=== PATIENT | female | born 1995 | race Caucasian/White ===

== ENCOUNTER → 2020-08-15 11:38 | Outpatient (BNVA) | payer SELFPAY | PROVIDERS: Family Provider Family Medicine; PCP Family Medicine; Visit Provider Nurse Practitioner Women's Health | DX: R39.9 Unspecified symptoms and signs involving the genitourinary system (principal); R30.0 Dysuria; R31.9 Hematuria, unspecified | CPT/HCPCS: 81000; 87077; 87086; 87184 ==

== ENCOUNTER → 2020-10-24 13:54 | Outpatient (BNVA) | payer OTHER, SELFPAY | PROVIDERS: Family Provider Family Medicine; PCP Family Medicine; Visit Provider Obstetrics & Gynecology | DX: Z30.431 Encounter for routine checking of intrauterine contraceptive device (principal) | CPT/HCPCS: 76830 ==

== ENCOUNTER → 2020-10-27 09:30 | Outpatient (BNVA) | payer OTHER, SELFPAY | PROVIDERS: Family Provider Family Medicine; PCP Family Medicine; Visit Provider Nurse Practitioner Women's Health | DX: Z34.90 Encounter for supervision of normal pregnancy, unspecified, unspecified trimester (principal); N93.0 Postcoital and contact bleeding; R39.89 Other symptoms and signs involving the genitourinary system | CPT/HCPCS: 81000; 87086; 87491; 87591; 87661 ==

== ENCOUNTER 2021-05-22 08:12 | Outpatient (CLI) | payer MEDICAID, SELFPAY ==
--- NOTE | 2021-05-22 08:21 | US_ITS ---
WS: [id number] EARLY OBSTETRICAL ULTRASOUND (<14 WEEKS). HISTORY: ENCOUNTER FOR SUPERVISION OF NORMAL 1ST COMPARISON: None available. Single intrauterine gestational sac is identified. Cardiac activity at 153 BPM. Mcnary-rump length raissa sures 6.1 cm which corresponds to a gestation of 12w4d. Normal-appearing yolk sac and amnion demonstr ated. No subchorionic hemorrhage.Patient was brought back for additional imaging. Additional imaging was to differentiate the amnion from the posterior neck and thorax. On additional imaging the amnion is noted to extend above the head. No free fluid. Normal size ovaries with no mass. Normal vascularity. Cervix is closed. No free fluid in the pelvis. US/US OB <= 14 weeks fetus [id number] IMPRESSION: 1. Single intrauterine gestation of 12 weeks 4 days with an EDC of 11/30/2021. 2. Normal cardiac activity.
== END 2021-05-22 08:13 | disposition home or self-care (01) ==
PROVIDERS: PCP Family Medicine; Visit Provider Pediatrics
DX: Z34.01 Encounter for supervision of normal first pregnancy, first trimester (principal); Z3A.12 12 weeks gestation of pregnancy
CPT/HCPCS: 76801

== ENCOUNTER 2021-07-02 08:00 | Outpatient (CLI) | payer MEDICAID, SELFPAY ==
--- NOTE | 2021-07-02 08:06 | US_ITS ---
WS: [id number] OBSTETRICAL ULTRASOUND COMPLETE HISTORY: ANATOMY CHECK COMPARISON: 05/22/2021 Single intrauterine gestation in transverse presentation. head on maternal RIGHT. Cervix is Closed and normal length. Cervical length is 4.4 cm. Normal amount of amniotic fluid surrounds the fetus. Placenta: Posterior, no previa or abruption. Placenta grade 1 Heart: 153 BPM. Four chambers are identified. RIGHT and LEFT outflow tracts are unremarkable. Anatomy: Intracranial structures and spine are normal. kidneys, stomach and urinary bladd er are unremarkable. Abdominal wall, three-vessel cord and cord insertion site are normal. 4 extremities are present. profile: Unremarkable. Gender: Female. measurements: BPD = 4.0 cm = 18w0d HC = 15.6 cm = 18w4d AC = 12.8 cm = 18w2d FL = 2.8 cm = 18w4d EFW: 240 g. Biometry is internally concordant. AGA by ultrasound: 18w3d CAN by ultrasound: 11/30/2021 US/US OB >= 14 weeks fetus [id number] IMPRESSION: 1. Single intrauterine gestation of 18w3d with an CAN of 11/30/2021. 2. Unremarkable screening survey of anatomy.
== END 2021-07-02 08:01 | disposition home or self-care (01) ==
PROVIDERS: PCP Family Medicine; Visit Provider Family Medicine
DX: Z36.89 Encounter for other specified antenatal screening (principal); Z3A.18 18 weeks gestation of pregnancy
CPT/HCPCS: 76805

== ENCOUNTER 2021-07-16 08:25 | Emergency (ER) | payer BC, MEDICAID, SELFPAY ==
[2021-07-16 08:40] VITALS: BP 116/79; PULSE 116; RESP 18; TEMP 36.3; O2SAT 100; BMI 25.7
--- NOTE | 2021-07-16 08:51 | ED_ITS ---
Documented by User: EDDY Kelly 07/16/21 11:55 HPI - GI Bleed General: Chief complaint: GI Bleed Stated complaint: diarrhea/blood in stool/abdominal cramps Time Seen by Provider: 07/16/21 08:36 Source: patient Mode of arrival: ambulatory Limitations: no limitations History of Present Illness: Patient is a 26-year-old female who presents to ED today with complaint of diarrhea over the past 3 days. Patient states she is having anywhere from 10-15 diarrhea stools daily. She states she became concerned when yesterday she began noticing a small amount of bright red blood in her stools. She states since then bleeding has progressed and is now noting a few teaspoons of mucus-like blood in each stool. She is having intermittent abdominal cramping. She reports the urge to defecate but often times cannot. She is not running fevers. No vomiting. Patient is [address] weeks [address] by Dr[address] May. No vaginal bleeding or leaking of fluids. MD complaint: blood on toilet paper and blood streaked stool Onset (ago): day(s) Pain Consistency: intermittent Associated symptoms: Reports abdominal pain; Denies chills, fever(s), headache(s), malaise, nausea, rash or vomiting Treatments Prior to Arrival: none Review of Systems Const: Denies: fever(s), chills, body aches, fatigue or malaise Card: Denies: chest pain Resp: Denies: dyspnea GI: Reports: abdominal pain, diarrhea, GI cramping and hematochezia; Denies: nausea, vomiting, hematemesis, early satiety, belching, excessive flatus, fecal incontinence, rectal pain, rectal swelling, rectal itching or melena : Denies: flank pain, dysuria, hematuria or vaginal bleeding Musc: Denies: neck pain, back pain, extremity pain or joint pain Skin/Breast: Denies: rash Neuro: Denies: headache(s) or dizziness PFS ED PFSH: Medical History No pertinent past medical history neghx: htn,dm,thyroid,dvt/pe Surgical History No pertinent past surgical history Family History Father Hypertension Grandmother Family history of thyroid problem Maternal grandmother Ovarian cancer, Onset Age: 65 Maternal grandmother. BRCA 2 carrier Family/Other Breast cancer Maternal great aunt Denies family history of Colon cancer Diabetes Heart disease Hyperlipidemia Uterine cancer Stroke Social History Additional social history: - Tobacco use: Denies Alcohol use: Denies Drug use: Denies Physical Exam Const: COMMON NORMALS: no acute distress, average body habitus, patient oriented x3, no limitations, healthy appearing, alert and well nourished HENMT: COMMON NORMALS: normocephalic and atraumatic HEAD & SCALP: normocephalic and atraumatic Resp: COMMON NORMALS: normal respiratory effort and clear to auscultation bilaterally AUSCULTATION: clear to auscultation bilaterally Cardio: COMMON NORMALS: regular rate and regular rhythm RATE: regular rate RHYTHM: regular rhythm GI: COMMON NORMALS: Normal to inspection, nondistended, normoactive bowel sounds present, Soft to palpation, No hepatosplenomegaly present and no masses INSPECTION: Yes gravid abdomen AUSCULTATION: Yes normoactive bowel sounds PALPATION: Yes Soft to palpation, Yes Tenderness to palpation present (GI) (mildly-diffuse) and Yes No hepatosplenomegaly present RECTAL EXAM: visual inspection normal, normal sphincter tone, No External hemorrhoid(s) present, No Internal hemorrhoid(s) present, no fecal impaction, no hemorrhoids noted and no mass(es) noted : COMMON NORMALS: Yes no CVA tenderness BLADDER/KIDNEY EXAM: Yes no CVA tenderness Back/Pelvis: COMMON NORMALS: no CVA tenderness Neuro: COMMON NORMALS: patient oriented x3, moves all extremities, no focal motor deficits and no sensory deficits noted SENSORIUM/ORIENTATION: Yes alert Skin: COMMON NORMALS: no rashes or lesions noted GENERAL SKIN EXAM: no rashes or lesions noted Course Reevaluation(s): Reevaluation #1: Bedside US shows live IUP with normal cardiac activity Vital Signs: Vital signs: Vital Signs Temperature 98.4 F 07/16/21 09:03 Pulse Rate 18 L 07/16/21 10:21 Respiratory Rate 18 07/16/21 10:21 Blood Pressure 114/78 07/16/21 10:21 Pulse Oximetry 93 07/16/21 10:21 MDM - GI Bleed Medical Decision Making Patient is a 26-year-old female at 20 weeks here for concerns of intermittent abdominal cramping, bloody/mucousy diarrhea, and tenesmus over the past 3 days. Patient slightly tachycardic upon arrival. She was given a liter of fluids and this did improve. Her white count is normal. Remainder of blood work is unremarkable. Bedside ultrasound of fetus showed a live IUP with normal cardiac activity. Decided to forego any form of imaging secondary to and unlikeliness of changing management. Stool cultures pending. Spoke to Dr. Pool about the need for antibiotics who recommended holding off at this time as most cases of enterocolitis are self-limited. Will contact patient later today if any of her stool tests come back positive-she was made aware that some of these are send outs and we will not receive results for [address] her on Bentyl for the abdominal cramping/spasms. Recommend close observation of symptoms at home and strict return to ED precautions were given. Lab Data : 07/16/21 08:50 07/16/21 08:50 Laboratory Results WBC 6.9 10^3/uL (4.0-10.0) 07/16/21 08:50 RBC 3.70 10^6/uL (4.1-5.3) L 07/16/21 08:50 Hgb 12.1 g/dL (11.5-15.3) 07/16/21 08:50 Hct 35.6 % (37.0-47.0) L 07/16/21 08:50 MCV 96.2 fl (81-99) 07/16/21 08:50 MCH 32.7 pg (28.0-34.0) 07/16/21 08:50 MCHC 34.0 g/dL (30.0-36.0) 07/16/21 08:50 RDW 12.8 % (12.1-15.1) 07/16/21 08:50 Plt Count 189 10^3/cmm (130-400) 07/16/21 08:50 MPV 10.7 fL (7.4-10.4) H 07/16/21 08:50 Neut % (Auto) 82.1 % 07/16/21 08:50 Lymph % (Auto) 10.6 % 07/16/21 08:50 [place] % (Auto) 6.6 % 07/16/21 08:50 Eos % (Auto) 0.3 % 07/16/21 08:50 Baso % (Auto) 0.3 % 07/16/21 08:50 Neut # (Auto) 5.63 10^3/uL (1.8-7.7) 07/16/21 08:50 Lymph # (Auto) 0.7 10^3/uL (0.8-4.8) L 07/16/21 08:50 [place] # (Auto) 0.5 10^3/uL (0.2-0.9) 07/16/21 08:50 Eos # (Auto) 0.0 10^3/uL (0.0-0.8) 07/16/21 08:50 Baso # (Auto) 0.0 10^3/uL (0.0-0.1) 07/16/21 08:50 Nucleated RBC % (auto) 0 % 07/16/21 08:50 Nucleated RBCs # 0.0 /100WBC 07/16/21 08:50 Sodium 134 mmol/L (136-145) L 07/16/21 08:50 Potassium 3.6 mmol/L (3.5-5.1) 07/16/21 08:50 Chloride 101 mmol/L (98-107) 07/16/21 08:50 Carbon Dioxide 23 mmol/L (22-29) 07/16/21 08:50 Anion Gap 13.6 (5-19) 07/16/21 08:50 BUN 5 mg/dL (6-20) L 07/16/21 08:50 Creatinine 0.6 mg/dL (0.5-0.9) 07/16/21 08:50 GFR Calculation 120.8 mL/min (90-130) 07/16/21 08:50 Glucose 90 mg/dL (65-115) 07/16/21 08:50 Calculated Osmolality 275 mOsm/kg (285-295) L 07/16/21 08:50 Calcium 9.1 mg/dL (8.5-10.5) 07/16/21 08:50 Total Bilirubin 0.2 mg/dL (0.15-1.2) 07/16/21 08:50 AST 34 U/L (0-32) H 07/16/21 08:50 ALT 44 U/L (0-33) H 07/16/21 08:50 Alkaline Phosphatase 83 IU/L (35-105) 07/16/21 08:50 Total Protein 7.1 g/dL (6.6-8.7) 07/16/21 08:50 Albumin 3.8 g/dL (3.5-5.2) 07/16/21 08:50 Globulin 3.3 g/dL (1.3-4.6) 07/16/21 08:50 Lipase 26 U/L (13-60) 07/16/21 08:50 HCG, Qual Positive (Negative) H 07/16/21 08:50 Urine Color Dark yellow (Yellow) 07/16/21 09:50 Urine Appearance Cloudy (CLEAR) 07/16/21 09:50 Urine pH 5 (5-7) 07/16/21 09:50 Ur Specific [place] 1.025 (1.005-1.030) 07/16/21 09:50 Urine Protein Neg (Negative) 07/16/21 09:50 Urine Glucose (UA) Norm (Normal) 07/16/21 09:50 Urine Ketones 1+ (Negative) H 07/16/21 09:50 Urine Blood Neg (Negative) 07/16/21 09:50 Urine Nitrate Negative (Negative) 07/16/21 09:50 Urine Bilirubin Neg (Negative) 07/16/21 09:50 Urine Urobilinogen Norm mg/dL (Negative) 07/16/21 09:50 Ur Leukocyte Esterase Trace (Negative) H 07/16/21 09:50 Urine RBC None /hpf (0-2) 07/16/21 09:50 Urine WBC 5-10 /hpf (0-5) H 07/16/21 09:50 Ur Squamous Epith Cells 25-40 /hpf (0-5) H 07/16/21 09:50 Amorphous Sediment Not Reportable 07/16/21 09:50 Urine Bacteria 3+ /hpf (NONE) H 07/16/21 09:50 Discharge Plan Discharge Patient Disposition: Home Clinical Impression: Colitis Condition: Stable Prescriptions: New dicyclomine 10 mg capsule 10 mg PO TID Qty: 14 0RF No Action Kyleena 17.5 mcg/24 hrs (5 yrs) 19.5 mg intrauterine device 1 device INTRAUTERI .every 5 years 0RF fluticasone propionate [Flonase Allergy Relief] 50 mcg/actuation spray,suspension 2 spray INTRANASAL DAILY PRN0RF Rx Instructions: administer into each nostril escitalopram oxalate 20 mg tablet 20 mg PO DAILY Qty: 30 12RF triamcinolone acetonide 0.5 % cream 1 applic TOPICAL DAILY PRN (Reason: chronic vulv) Qty: 15 2RF Discharge Orders: Discharge ED (Routine); Ordered 07/16/21 Ordered By: Maile Horan Referrals: Raheem Lira DO [Primary Care Provider] - Discharge Diet: Soft Mechanical and Clear Liquid Patient Instructions: Colitis (ED) Activity Restrictions/Additional Instructions: As we discussed we will give you medication to help with the abdominal spasm/cramping. You have stool cultures currently pending. At this time we will hold off on antibiotic therapy as most cases are self-limited and will resolve on their own. You need to monitor symptoms closely and if diarrhea or bloody stools continue to worsen or if you have worsening abdominal pains, fevers, repetitive episodes of vomiting, or generally feeling worse you need to return to the ED for further evaluation. As we discussed please do a bland liquid diet over the next 48 hours and slowly advance as tolerated. Coding Level of Care Code ED Irrigation Equipment Mechanic for Chg Fwd Exam Comprehensive Documented by User: Jessee Pool DO 07/16/21 12:14 HPI - GI Bleed General: Chief complaint: GI Bleed Stated complaint: diarrhea/blood in stool/abdominal cramps Time Seen by Provider: 07/16/21 08:36 [facility] ED PFSH: Medical History No pertinent past medical history neghx: htn,dm,thyroid,dvt/pe Surgical History No pertinent past surgical history Family History Father Hypertension Grandmother Family history of thyroid problem Maternal grandmother Ovarian cancer, Onset Age: 65 Maternal grandmother. BRCA 2 carrier Family/Other Breast cancer Maternal great aunt Denies family history of Colon cancer Diabetes Heart disease Hyperlipidemia Uterine cancer Stroke Social History Additional social history: - Tobacco use: Denies Alcohol use: Denies Drug use: Denies Course Vital Signs: Vital signs: Vital Signs Temperature 98.4 F 07/16/21 09:03 Pulse Rate 18 L 07/16/21 10:21 Respiratory Rate 18 07/16/21 10:21 Blood Pressure 114/78 07/16/21 10:21 Pulse Oximetry 93 07/16/21 10:21 MDM - GI Bleed Medical Decision Making Patient is a 26-year-old female at 20 weeks here for concerns of intermittent abdominal cramping, bloody/mucousy diarrhea, and tenesmus over the past 3 days. Patient slightly tachycardic upon arrival. She was given a liter of fluids and this did improve. Her white count is normal. Remainder of blood work is unremarkable. Bedside ultrasound of fetus showed a live IUP with normal cardiac activity. Decided to forego any form of imaging secondary to and unlikeliness of changing management. Stool cultures pending. Spoke to Dr. Pool about the need for antibiotics who recommended holding off at this time as most cases of enterocolitis are self-limited. Will contact patient later today if any of her stool tests come back positive-she was made aware that some of these are send outs and we will not receive results for [address] her on Bentyl for the abdominal cramping/spasms. Recommend close observation of symptoms at home and strict return to ED precautions were given. Chart reviewed and patient discussed with midlevel. Agree with assessment and plan. Medical Records I reviewed the patient's medical records. Lab Data I reviewed the patient's lab results. : 07/16/21 08:50 07/16/21 08:50 Laboratory Results WBC 6.9 10^3/uL (4.0-10.0) 07/16/21 08:50 RBC 3.70 10^6/uL (4.1-5.3) L 07/16/21 08:50 Hgb 12.1 g/dL (11.5-15.3) 07/16/21 08:50 Hct 35.6 % (37.0-47.0) L 07/16/21 08:50 MCV 96.2 fl (81-99) 07/16/21 08:50 MCH 32.7 pg (28.0-34.0) 07/16/21 08:50 MCHC 34.0 g/dL (30.0-36.0) 07/16/21 08:50 RDW 12.8 % (12.1-15.1) 07/16/21 08:50 Plt Count 189 10^3/cmm (130-400) 07/16/21 08:50 MPV 10.7 fL (7.4-10.4) H 07/16/21 08:50 Neut % (Auto) 82.1 % 07/16/21 08:50 Lymph % (Auto) 10.6 % 07/16/21 08:50 [place] % (Auto) 6.6 % 07/16/21 08:50 Eos % (Auto) 0.3 % 07/16/21 08:50 Baso % (Auto) 0.3 % 07/16/21 08:50 Neut # (Auto) 5.63 10^3/uL (1.8-7.7) 07/16/21 08:50 Lymph # (Auto) 0.7 10^3/uL (0.8-4.8) L 07/16/21 08:50 [place] # (Auto) 0.5 10^3/uL (0.2-0.9) 07/16/21 08:50 Eos # (Auto) 0.0 10^3/uL (0.0-0.8) 07/16/21 08:50 Baso # (Auto) 0.0 10^3/uL (0.0-0.1) 07/16/21 08:50 Nucleated RBC % (auto) 0 % 07/16/21 08:50 Nucleated RBCs # 0.0 /100WBC 07/16/21 08:50 Sodium 134 mmol/L (136-145) L 07/16/21 08:50 Potassium 3.6 mmol/L (3.5-5.1) 07/16/21 08:50 Chloride 101 mmol/L (98-107) 07/16/21 08:50 Carbon Dioxide 23 mmol/L (22-29) 07/16/21 08:50 Anion Gap 13.6 (5-19) 07/16/21 08:50 BUN 5 mg/dL (6-20) L 07/16/21 08:50 Creatinine 0.6 mg/dL (0.5-0.9) 07/16/21 08:50 GFR Calculation 120.8 mL/min (90-130) 07/16/21 08:50 Glucose 90 mg/dL (65-115) 07/16/21 08:50 Calculated Osmolality 275 mOsm/kg (285-295) L 07/16/21 08:50 Calcium 9.1 mg/dL (8.5-10.5) 07/16/21 08:50 Total Bilirubin 0.2 mg/dL (0.15-1.2) 07/16/21 08:50 AST 34 U/L (0-32) H 07/16/21 08:50 ALT 44 U/L (0-33) H 07/16/21 08:50 Alkaline Phosphatase 83 IU/L (35-105) 07/16/21 08:50 Total Protein 7.1 g/dL (6.6-8.7) 07/16/21 08:50 Albumin 3.8 g/dL (3.5-5.2) 07/16/21 08:50 Globulin 3.3 g/dL (1.3-4.6) 07/16/21 08:50 Lipase 26 U/L (13-60) 07/16/21 08:50 HCG, Qual Positive (Negative) H 07/16/21 08:50 Urine Color Dark yellow (Yellow) 07/16/21 09:50 Urine Appearance Cloudy (CLEAR) 07/16/21 09:50 Urine pH 5 (5-7) 07/16/21 09:50 Ur Specific [place] 1.025 (1.005-1.030) 07/16/21 09:50 Urine Protein Neg (Negative) 07/16/21 09:50 Urine Glucose (UA) Norm (Normal) 07/16/21 09:50 Urine Ketones 1+ (Negative) H 07/16/21 09:50 Urine Blood Neg (Negative) 07/16/21 09:50 Urine Nitrate Negative (Negative) 07/16/21 09:50 Urine Bilirubin Neg (Negative) 07/16/21 09:50 Urine Urobilinogen Norm mg/dL (Negative) 07/16/21 09:50 Ur Leukocyte Esterase Trace (Negative) H 07/16/21 09:50 Urine RBC None /hpf (0-2) 07/16/21 09:50 Urine WBC 5-10 /hpf (0-5) H 07/16/21 09:50 Ur Squamous Epith Cells 25-40 /hpf (0-5) H 07/16/21 09:50 Amorphous Sediment Not Reportable 07/16/21 09:50 Urine Bacteria 3+ /hpf (NONE) H 07/16/21 09:50 Discharge Plan Discharge Patient Disposition: Home Clinical Impression: Colitis Condition: Stable Prescriptions: New dicyclomine 10 mg capsule 10 mg PO TID Qty: 14 0RF No Action Kyleena 17.5 mcg/24 hrs (5 yrs) 19.5 mg intrauterine device 1 device INTRAUTERI .every 5 years 0RF fluticasone propionate [Flonase Allergy Relief] 50 mcg/actuation spray,suspension 2 spray INTRANASAL DAILY PRN0RF Rx Instructions: administer into each nostril escitalopram oxalate 20 mg tablet 20 mg PO DAILY Qty: 30 12RF triamcinolone acetonide 0.5 % cream 1 applic TOPICAL DAILY PRN (Reason: chronic vulv) Qty: 15 2RF Discharge Orders: Discharge ED (Routine); Ordered 07/16/21 Ordered By: Maile Horan Referrals: Raheem Lira DO [Primary Care Provider] - Discharge Diet: Soft Mechanical and Clear Liquid Patient Instructions: Colitis (ED) Activity Restrictions/Additional Instructions: As we discussed we will give you medication to help with the abdominal spasm/cramping. You have stool cultures currently pending. At this time we will hold off on antibiotic therapy as most cases are self-limited and will resolve on their own. You need to monitor symptoms closely and if diarrhea or bloody stools continue to worsen or if you have worsening abdominal pains, fevers, repetitive episodes of vomiting, or generally feeling worse you need to return to the ED for further evaluation. As we discussed please do a bland liquid diet over the next 48 hours and slowly advance as tolerated. Coding Level of Care Code ED Irrigation Equipment Mechanic for Chg Fwd Exam Comprehensive
[2021-07-16 08:59] VITALS: BP 112/79; PULSE 110; RESP 16; TEMP 36.8
[2021-07-16 09:03] VITALS: BP 115/73; PULSE 109; RESP 16; TEMP 36.9; O2SAT 95
[2021-07-16] MEDS: sodium chloride 0.9% 1,000 ML 999 ML IV (09:07)
[2021-07-16 09:11] LABS: Basophils % 0.3 %; Eosinophils % 0.3 %; Hematocrit 35.6 % (37.0-47.0); Hemoglobin 12.1 g/dL (11.5-15.3); Lymphocytes # 0.7 10^3/uL (0.8-4.8); Lymphocytes % 10.6 %; Mean Corpuscular Hemoglobin 32.7 pg (28.0-34.0); Mean Corpuscular Volume 96.2 fl (81-99); Mean Platelet Volume 10.7 fL (7.4-10.4); Monocytes # 0.5 10^3/uL (0.2-0.9); Monocytes % 6.6 %; Neutrophils # 5.63 10^3/uL (1.8-7.7); Neutrophils % 82.1 %; Nucleated Red Blood Cells % 0 %; Platelet Count 189 10^3/cmm (130-400); Red Cell Distribution Width 12.8 % (12.1-15.1); White Blood Count 6.9 10^3/uL (4.0-10.0)
[2021-07-16 09:27] LABS: HCG, Serum Qual Positive (Negative)
[2021-07-16 09:32] LABS: Alanine Aminotransferase 44 U/L (0-33); Albumin Level 3.8 g/dL (3.5-5.2); Alkaline Phosphatase 83 IU/L (35-105); Anion Gap 13.6 (5-19); Aspartate Amino Transferase 34 U/L (0-32); Blood Urea Nitrogen 5 mg/dL (6-20); Calcium 9.1 mg/dL (8.5-10.5); Carbon Dioxide 23 mmol/L (22-29); Chloride 101 mmol/L (98-107); Globulin 3.3 g/dL (1.3-4.6); Glomerular Filtration Rate 120.8 mL/min (90-130); Glucose 90 mg/dL (65-115); Lipase 26 U/L (13-60); Osmolality Calculated 275 mOsm/kg (285-295); Potassium 3.6 mmol/L (3.5-5.1); Sodium 134 mmol/L (136-145); Total Bilirubin 0.2 mg/dL (0.15-1.2); Total Protein 7.1 g/dL (6.6-8.7)
--- NOTE | 2021-07-16 09:58 | PC.NURSE ---
Loose, brown, mucous w streaks of blood, no foul odor observed. Approx 100 ml. Urine to lab.
[2021-07-16 10:16] LABS: Add Urine Microscopic? YES; Bilirubin Urine Neg (Negative); Blood Urine Neg (Negative); Glucose Urine UA Norm (Normal); Ketones Urine 1+ (Negative); Leukocyte Esterase Urine Trace (Negative); Nitrate Urine Negative (Negative); Protein Urine Neg (Negative); Specific Gravity, Urine 1.025 (1.005-1.030); Urine Appearance Cloudy (CLEAR); Urine Color Dark Yellow (Yellow); Urobilinogen Urine Norm (Negative); pH Urine 5 (5-7)
[2021-07-16 10:20] LABS: Add Urine Culture? No; Bacteria Urine 3+ /hpf; Squamous Epithelial Cell Urine 25-40 /hpf (0-5)
[2021-07-16 10:21] VITALS: BP 114/78; PULSE 18; RESP 18; O2SAT 93
== END 2021-07-16 10:59 | disposition home or self-care (01) ==
PROVIDERS: Emergency Provider Physician Assistant; PCP Family Medicine
DX: O26.892 Other specified pregnancy related conditions, second trimester (principal); Z3A.22 22 weeks gestation of pregnancy; K52.9 Noninfective gastroenteritis and colitis, unspecified
CPT/HCPCS: 80053; 81001; 82274; 83630; 83690; 84703; 85025; 87493; 87506; 96360; 99284; J7030

== ENCOUNTER → 2021-07-27 08:12 | Outpatient (BNVA) | payer BC, MEDICAID, SELFPAY | PROVIDERS: PCP Family Medicine; Visit Provider Obstetrics & Gynecology | DX: Z34.92 Encounter for supervision of normal pregnancy, unspecified, second trimester (principal) | CPT/HCPCS: 80307; 84315 ==

== ENCOUNTER → 2021-08-17 11:56 | Outpatient (BNVA) | payer BC, MEDICAID, SELFPAY | PROVIDERS: PCP Family Medicine; Visit Provider Obstetrics & Gynecology | DX: O09.32 Supervision of pregnancy with insufficient antenatal care, second trimester (principal) | CPT/HCPCS: 81000; 82950 ==

== ENCOUNTER → 2021-09-07 09:21 | Outpatient (BNVA) | payer BC, MEDICAID, SELFPAY | PROVIDERS: PCP Family Medicine; Visit Provider Obstetrics & Gynecology | DX: O09.32 Supervision of pregnancy with insufficient antenatal care, second trimester (principal); Z3A.00 Weeks of gestation of pregnancy not specified | CPT/HCPCS: 81000; 85027 ==

== ENCOUNTER → 2021-09-25 08:40 | Outpatient (BNVA) | payer BC, MEDICAID, SELFPAY | PROVIDERS: PCP Family Medicine; Visit Provider Obstetrics & Gynecology | DX: O09.32 Supervision of pregnancy with insufficient antenatal care, second trimester (principal); Z3A.00 Weeks of gestation of pregnancy not specified | CPT/HCPCS: 81000 ==

== ENCOUNTER 2021-10-09 09:20 | Outpatient (CLI) | payer BC, MEDICAID, SELFPAY ==
[2021-10-09 09:20] VITALS: BMI 29.2
[2021-10-09 09:34] VITALS: BP 126/83; PULSE 100
[2021-10-09 09:54] VITALS: RESP 17
[2021-10-09] MEDS: NIFEdipine 10 mg Capsule 30 MG PO (10:08)
[2021-10-09 10:38] VITALS: BP 105/52; PULSE 116
[2021-10-09 10:55] LABS: Bilirubin Urine Neg (Negative); Blood Urine Neg (Negative); Glucose Urine UA Norm (Normal); Ketones Urine Negative (Negative); Leukocyte Esterase Urine Negative (Negative); Nitrate Urine Negative (Negative); Protein Urine Neg (Negative); Specific Gravity, Urine 1.005 (1.005-1.030); Urine Appearance Clear (CLEAR); Urine Color Yellow (Yellow); Urobilinogen Urine Norm (Negative); pH Urine 7 (5-7)
[2021-10-09 11:01] LABS: Add Urine Culture? No; Bacteria Urine TRACE /hpf; RBC Urine 0-4 /hpf (0-2); WBC Urine 0-4 /hpf (0-5)
[2021-10-09] MEDS: terbutaline 1 mg/mL INJ 0.25 MG SUBCUT ×2 (11:48→13:13)
[2021-10-09 13:36] VITALS: BP 105/52; PULSE 116
== END 2021-10-09 13:30 | disposition home or self-care (01) ==
LOC: OPOB 09:21 → OBGYN 09:23
PROVIDERS: Absent Provider Obstetrics & Gynecology; PCP Family Medicine; Visit Provider Obstetrics & Gynecology
DX: O26.899 Other specified pregnancy related conditions, unspecified trimester (principal); Z3A.00 Weeks of gestation of pregnancy not specified; R10.9 Unspecified abdominal pain
CPT/HCPCS: 59025; 81000; 81001; 96372; 99211; J3105

== ENCOUNTER → 2021-10-19 13:59 | Outpatient (BNVA) | payer BC, MEDICAID, SELFPAY | PROVIDERS: PCP Family Medicine; Visit Provider Obstetrics & Gynecology | DX: O09.32 Supervision of pregnancy with insufficient antenatal care, second trimester (principal); Z3A.00 Weeks of gestation of pregnancy not specified | CPT/HCPCS: 81000 ==

== ENCOUNTER → 2021-11-02 08:45 | Outpatient (BNVA) | payer BC, MEDICAID, SELFPAY | PROVIDERS: PCP Family Medicine; Visit Provider Nurse Practitioner Women's Health | DX: Z34.90 Encounter for supervision of normal pregnancy, unspecified, unspecified trimester (principal) | CPT/HCPCS: 81000; 87081 ==

== ENCOUNTER → 2021-11-12 14:12 | Outpatient (BNVA) | payer BC, MEDICAID, SELFPAY | PROVIDERS: PCP Family Medicine; Visit Provider Obstetrics & Gynecology | DX: O09.32 Supervision of pregnancy with insufficient antenatal care, second trimester (principal) | CPT/HCPCS: 81000 ==

== ENCOUNTER → 2021-11-19 15:02 | Outpatient (BNVA) | payer BC, MEDICAID, SELFPAY | PROVIDERS: PCP Family Medicine; Visit Provider Obstetrics & Gynecology | DX: Z34.90 Encounter for supervision of normal pregnancy, unspecified, unspecified trimester (principal); Z3A.00 Weeks of gestation of pregnancy not specified | CPT/HCPCS: 81000 ==

== ENCOUNTER 2021-11-25 15:12 | Inpatient (IN) | payer BC, MEDICAID, SELFPAY ==
[2021-11-25] VITALS (38 sets, daily range): BP systolic 114–151; BP diastolic 64–90; PULSE 53–105; RESP 15–18; TEMP 36.1–36.8; O2SAT 90–100; BMI 31.3
[2021-11-25 13:53] LABS: Actim Prom Positive
[2021-11-25 14:49] LABS: Basophils % 0.3 %; Eosinophils # 0.2 10^3/uL (0.0-0.8); Eosinophils % 1.5 %; Hematocrit 41.4 % (37.0-47.0); Hemoglobin 14.2 g/dL (11.5-15.3); Lymphocytes # 1.8 10^3/uL (0.8-4.8); Lymphocytes % 15.5 %; Mean Corpuscular HGB Conc 34.3 g/dL (30.0-36.0); Mean Corpuscular Hemoglobin 32.7 pg (28.0-34.0); Mean Corpuscular Volume 95.4 fl (81-99); Mean Platelet Volume 11.9 fL (7.4-10.4); Monocytes # 0.8 10^3/uL (0.2-0.9); Monocytes % 6.8 %; Neutrophils # 8.55 10^3/uL (1.8-7.7); Neutrophils % 75.5 %; Nucleated Red Blood Cells % 0 %; Platelet Count 227 10^3/cmm (130-400); Red Blood Count 4.34 10^6/uL (4.1-5.3); Red Cell Distribution Width 12.3 % (12.1-15.1); White Blood Count 11.3 10^3/uL (4.0-10.0)
[2021-11-25 15:10] LABS: Alanine Aminotransferase 14 U/L (0-33); Albumin Level 3.7 g/dL (3.5-5.2); Alkaline Phosphatase 200 U/L (35-105); Blood Urea Nitrogen 8 mg/dL (6-20); Calcium 9.1 mg/dL (8.5-10.5); Carbon Dioxide 20 mmol/L (22-29); Chloride 104 mmol/L (98-107); Globulin 3.2 g/dL (1.3-4.6); Glomerular Filtration Rate 120.8 mL/min (90-130); Glucose 76 mg/dL (65-115); Osmolality Calculated 281 mOsm/kg (285-295); Sodium 137 mmol/L (136-145); Total Bilirubin 0.2 mg/dL (0.15-1.2); Total Protein 6.9 g/dL (6.6-8.7); Uric Acid 3.5 mg/dL (2.4-5.7)
[2021-11-25 15:14] LABS: Anion Gap 16.8 (5-19); Aspartate Amino Transferase 17 U/L (0-32); Potassium 3.8 mmol/L (3.5-5.1)
[2021-11-25 15:21] LABS: Urine Appearance Hazy (CLEAR); Urine Color Yellow (Yellow); pH Urine 6 (5-7)
[2021-11-25 15:22] LABS: Add Urine Microscopic? YES; Bilirubin Urine Neg (Negative); Blood Urine Trace (Negative); Glucose Urine UA Norm (Normal); Ketones Urine 1+ (Negative); Leukocyte Esterase Urine Negative (Negative); Nitrate Urine Negative (Negative); Protein Urine Neg (Negative); Specific Gravity, Urine 1.015 (1.005-1.030); Urobilinogen Urine 1 mg/dL (Negative)
[2021-11-25 15:23] LABS: Bacteria Urine 2+ /hpf; Mucus Urine 2+ /hpf; Squamous Epithelial Cell Urine 15-25 /hpf (0-5); WBC Urine RARE /hpf (0-5)
[2021-11-25 15:24] LABS: Add Urine Culture? No
[2021-11-25 15:37] LABS: Urine Creatinine 219 mg/dL (28-217)
[2021-11-25 15:46] LABS: UPRO/UCREAT Ratio 0.13 mg/mg CR; Urine Protein Random 28 mg/dL
[2021-11-25] MEDS: miSOPROStol 100 mcg tablet 25 MCG VAGINAL (15:54)
[2021-11-25] MEDS: dextrose 5%-lactated ringers 1,000 ML 125 ML IV (18:21)
[2021-11-25] MEDS: fentaNYL 50 mcg/mL INJ 2mL IVP ×2 (18:29→19:30)
[2021-11-25] MEDS: lactated ringers 1,000 ML 999 ML IV (19:30)
[2021-11-25] MEDS: ondansetron 2 mg/ML SDV 2 mL 4 MG IVP (20:18)
--- NOTE | 2021-11-25 20:24 | P.ANESUD_ITS ---
Pre-Anesthetic Update Pre-Anesthetic Assessment: Date of Surgery/Procedure: 11/25/21 Preop Maria [place] Carmen gnosis: Planning of labor analgesia Any changes to Pre-Anesthetic Assessment?: No Labs Last 48hrs: Short CBC 11/25/21 Range/Units 14:15 WBC 11.3 H (4.0-10.0) 10^3/ uL Hgb 14.2 (11.5-15.3) g/dL Hct 41.4 (37.0-47.0) % MCV 95.4 (81-99) fl Plt Count 227 (130-400) 10^3/c mm Neut % (Auto) 75.5 % Neut # (Auto) 8.55 H (1.8-7.7) 10^3/u L BMP 11/25/21 14:15 Sodium 137 Potassium 3.8 Chloride 104 Carbon Dioxide 20 L BUN 8 Creatinine 0.6 Glucose 76 Calcium 9.1 Liver Function 11/25/21 Range/Units 14:15 Total Bilirubin 0.2 (0.15-1.2) mg/dL AST 17 (0-32) U/L ALT 14 (0-33) U/L Alkaline Phosphata se 200 H (35-105) U/L Albumin 3.7 (3.5-5.2) g/dL Urine 11/25/21 Range/Units 15:00 Urine Color Yellow (Yellow) Urine Appearance Hazy A (CLEAR) Urine pH 6 (5-7) Ur Specific Gravit y 1.015 (1.005-1.030) Urine Protein Neg (Negative) Urine Glucose (UA) Norm (Normal) Urine Ketones 1+ H (Negative) Urine Nitrate Negative (Negative) Urine Bilirubin Neg (Negative) Ur Leukocyte Loulou ase Negative (Negative) Urine RBC None (0-2) /hpf Urine WBC Rare (0-5) /hpf Vitals: Temperature 97.9 F 11/25/21 15:28 Temperature Source Temporal Artery S can 11/25/21 15:28 Pulse Rate 74 11/25/21 20:22 Respiratory Rate 15 11/25/21 19:30 Respiratory Effort Non-Labored 11/25/21 18:29 Respiratory Depth Normal 11/25/21 19:30 Respiratory Patter n 11/25/21 18:29 Blood Pressure 128/73 11/25/21 20:22 Pulse Oximetry 98 11/25/21 20:16 Oxygen Delivery Me thod 11/25/21 14:43 Exam: Pre-Anes Outpt Exam: alert, oriented x 3, clear to auscultation bilaterally and regular rate & rhythm Cardiac Studies: No Data to Display Anesthesia Procedures Epidural: Time Out Performed: Yes Consents Signed: Procedure Consent Consent: requested by attending/covering physician, from patient, risks and benefits reviewed and patient agrees to proceed Lumbar Level: L3-L4 Epidural position: sitting Epidural procedure: 1% lidocaine to numb the area, 18 g needle, neg for paresthesia, test dose given, 1.5% xylocaine 1:200k epi, 0.2% Ropivacaine bolus ml, placed PCEA, no systemic response, sterile dressing applied and 0.2% Ropiavacaine @ mls/hr (13) Additional Comments: DANILO at 4cm, cath at 9cm, 5mls of 2% lido
[2021-11-25] MEDS: metoclopramide 5 mg/mL SDV 2 mL 10 MG IV (22:15)
[2021-11-26] VITALS (56 sets, daily range): BP systolic 105–169; BP diastolic 58–124; PULSE 66–106; RESP 14–15; TEMP 36.2–37.1; O2SAT 96–98
[2021-11-26] MEDS: dextrose 5%-lactated ringers 1,000 ML 125 ML IV ×2 (04:11→11:57)
--- NOTE | 2021-11-26 08:09 | PM.OPHPUD ---
Labor & Delivery H&P Update Date of Procedure: November 26, 2021 Date H&P Performed: 11/19/21 H&P update information: I have reviewed H&P completed within last 30 days, I have examined patient prior to procedure and No changes to prior documentation (cervix: 7cm/90/0/VX/PROM: meconium) Admission Diagnosis: Preop diagnosis: Planning of labor analgesia
--- NOTE | 2021-11-26 08:13 | P.PN_ITS ---
Subjective Subjective: Ms. Lopez 26-year-old female G1, P0 with an EGA at 39 weeks in active labor, with prelabor rupture of membrane Vitals/I&O/Wt Last Vital Signs Temp 98.3 F 11/26/21 06:40 Pulse 76 11/26/21 07:57 Resp 15 11/25/21 19:30 BP 120/74 11/26/21 07:57 Pulse Ox 98 11/25/21 20:16 O2 Del Method 11/25/21 14:43 11/25/21 11/26/21 11/26/21 22:59 06:59 14:59 Intake Total 143.75 / 143.75 956.25 / 1100.00 Balance 143.75 / 143.75 956.25 / 1100.00 Weight last 48 hrs Weight 80.286 kg Physical Exam Narrative: GA: Alert and oriented ?3. Lungs: Clear to auscultation bilaterally. Heart: Regular rhythm and rate. Abdomen: Gravid, full the height equals dates, nontender. SUPERVISOR OVENS: SVE; dilation: 7 cm, effacement: 90%, station: 0, presentation: vx, membranes: Prelabor rupture of membranes: Meconium. Extremities: no edema, no cyanosis, no calves pain. heart tracing: Basal rate: 140's bpm, Variability: moderate, Accelerations: present, Decelerations: absent, Contraction: q6min. Urinary Catheter Management: Guzman: Cath Placed During This Visit: yes Reason for Continuing Indwelling Catheter: Other Urinary Catheter Date of Insertion: 11/25/21 Urinary Catheter Time of Insertion: 20:27 Data : 11/27/21 01:17 11/25/21 14:15 A&P Assessment and plan (1) Full-term premature rupture of membranes with onset of labor within 24 hours of rupture: Mrs. Lopez 26-year-old female with full-term came to labor and delivery with complaint of rupture of membranes which was confirmed by actinprom. heart tracing category 1, scalp stimulation present. Slow progression of labor we will augment with oxytocin. Meconium was noted. Anticipate vaginal delivery. Status: Acute Attestations Medical Necessity Statement*: In my professional opinion per admitting diagnosis Coding Level of Care Code Acute Salad Bar Clerk for [facility] Fwzaynab Diagnoses Full-term premature rupture of membranes with onset of labor within 24 hours of rupture O42.02
[2021-11-26] MEDS: oxytocin 30 UNIT/500 ML BAG IV (08:22)
[2021-11-26] MEDS: ondansetron 2 mg/ML SDV 2 mL 4 MG IVP (11:43)
--- NOTE | 2021-11-26 13:03 | P.PCNOB_ITS ---
Delivery Note: Date of delivery: November 26, 2021 Pre-delivery diagnoses: Term . Prelabor rupture of membranes. Post-delivery diagnoses: Term delivered. Prelabor rupture of membranes Procedure: Spontaneous vaginal delivery Delivering Physician: Tai May MD Estimated blood loss (mL): 300 Pre-Delivery Course: Ms. Terrazas is a 26 year old established patient with an LMP of 02/24/2021, CAN 12/01/2021 , placing her at 39 2/7 weeks today.who has been receiving care from [facility]. Admitted to labor and delivery with prelabor rupture of membranes. CC: Onset of labor at term. HPI: Received appropriate care. Daily vitamins since two months prior to conception. labs have all been normal, including negative for HIV. She was found to negative for Group B Strep from screening at 36 weeks. She has gained approximately 37 lbs throughout the . She denies a history of HTN during . Glucose tolerance screening for gestational diabetes was negative. Delivery: The patient was noted to be complete and pushing, so was placed in the dorsal lithotomy position, prepped and draped in the usual sterile fashion for a vaginal delivery. Pt. Noted to have epidural anesthesia. At 1253 the patient delivered a viable at 39+2 weeks female infant weighing 3505 g with scores of 8 and 9 at one and five minutes, respectively. The vertex was delivered spontaneously over intact perineum. The patient was asked to push and the head delivered spontaneously in the REA position, over an intact perineum. A nuchal cord was checked and none noted. The anterior shoulder delivered easily and the posterior shoulder followed. The remainder of the infant was easily delivered and the oropharynx and nasopharynx was bulb suctioned. The infant was noted to have spontaneous cry and spontaneous movement of all four extremities. The cord was clamped x 2 and cut and noted to have 2 arteries and one vein. The was passed to the mother's abdomen where nursing personnel were in attendance. The placenta delivered intact spontaneously and the uterus was explored. 20 units of Pitocin was placed in the IV bag to firm the uterus. Examination of the cervix and vaginal vault did not reveal any lacerations. A vaginal pack was then placed. Examination of the perineum showed small first-degree laceration that did not need repair. The vaginal pack was then removed. The patient tolerated this procedure well, and recovered in L&D with her to the LDR room. All sponge and needle counts were correct. Post-Delivery Status: Good and stable History History History 1 Term 0 0 Miscarriages/Ectopic 0 Living Children 0 Coding Level of Care Code Acute Roller Inspector for Chg Audie
[2021-11-26] MEDS: ibuprofen 800 mg tablet PO ×2 (14:21→20:18)
[2021-11-26] MEDS: acetaminophen 325 mg Tablet 650 MG PO (18:50)
[2021-11-26] MEDS: docusate sodium 100 mg Capsule PO (18:50)
[2021-11-27 01:38] LABS: Hematocrit 33.8 % (37.0-47.0); Hemoglobin 11.6 g/dL (11.5-15.3); Mean Corpuscular HGB Conc 34.3 g/dL (30.0-36.0); Mean Corpuscular Hemoglobin 33.2 pg (28.0-34.0); Mean Corpuscular Volume 96.8 fl (81-99); Mean Platelet Volume 11.9 fL (7.4-10.4); Platelet Count 196 10^3/cmm (130-400); Red Blood Count 3.49 10^6/uL (4.1-5.3); Red Cell Distribution Width 12.5 % (12.1-15.1); White Blood Count 20.2 10^3/uL (4.0-10.0)
[2021-11-27 02:06] VITALS: BP 120/77; PULSE 73; TEMP 36.9; O2SAT 98
[2021-11-27 06:25] VITALS: BP 105/70; PULSE 72; TEMP 36.9; O2SAT 98
[2021-11-27] MEDS: ibuprofen 800 mg tablet PO (09:24)
[2021-11-27] MEDS: prenatal vitamin Capsule 1 CAP PO (09:24)
[2021-11-27] MEDS: docusate sodium 100 mg Capsule PO (09:24)
[2021-11-27] MEDS: benzocaine-menthol 78 gm Canister 1 SPRAY TOPICAL (09:27)
[2021-11-27 09:30] VITALS: BP 115/72; PULSE 78; RESP 16; TEMP 36.6; O2SAT 97
--- NOTE | 2021-11-27 13:01 | PM.OBGYDC ---
Discharge Providers DIRECTOR RETIREMENT Date of Admission: 11/25/21 15:12 Date of Discharge: 11/27/21 Attending Provider at Admission: Tai May MD Attending Provider at Discharge: Tai May MD Primary DIRECTOR RETIREMENT: Tai May MD Primary Care Provider: Raheem Lira DO Diagnoses at Discharge Discharge Diagnosis (1) Full-term premature rupture of membranes with onset of labor within 24 hours of rupture: Status: Acute (2) Term delivered: Status: Acute Reason for Visit Reason for Visit: possible ROM Hospital Course Hospital Course Ms. Lopez 26-year-old female G1, P1 with an EGA at 39 weeks +2 days came to labor and delivery with rupture of membranes. She was admitted with prelabor rupture of membranes, oxytocin was given for labor augmentation and she progressed to have a spontaneous vaginal delivery without complications. She delivered a female term with a birthweight of 3505 g and Apgars score 8/9. Overnight observation was uneventful. Tolerating diet well. Ambulating without difficulty. Planning to use the IUD for contraception at the 6 weeks visit. Information Peripartum Data: Infant Delivery Method: Vaginal Physical Exam Narrative: GA; alert and oriented x 3 HEENT: normal Breasts: engorged Nipples - skin intact Lungs; clear to auscultation Heart: regular rhythm, no murmurs. Abd: Appropriately tender. BS+. Uterine fundus below umbilicus. No Fundal Tenderness. Perineum: normal lochia. Extremities: no edema, no cyanosis, no tenderness. Urinary Catheter Management: Guzman: Cath Placed During This Visit: yes, but has since been removed by the nurse Reason for Continuing Indwelling Catheter: Accurate Measurement of Urinary Output in Critically Ill Patients Urinary Catheter Date of Insertion: 11/25/21 Urinary Catheter Time of Insertion: 20:27 Date Urinary Catheter Removed: 11/26/21 Time Urinary Catheter Discontinued: 12:00 History History History 1 Term 0 0 Miscarriages/Ectopic 0 Living Children 0 Discharge Data Studies Completed and Pending Laboratory Results WBC 20.2 10^3/uL (4.0-10.0) H 11/27/21 01:17 RBC 3.49 10^6/uL (4.1-5.3) L 11/27/21 01:17 Hgb 11.6 g/dL (11.5-15.3) 11/27/21 01:17 Hct 33.8 % (37.0-47.0) L 11/27/21 01:17 MCV 96.8 fl (81-99) 11/27/21 01:17 MCH 33.2 pg (28.0-34.0) 11/27/21 01:17 MCHC 34.3 g/dL (30.0-36.0) 11/27/21 01:17 RDW 12.5 % (12.1-15.1) 11/27/21 01:17 Plt Count 196 10^3/cmm (130-400) 11/27/21 01:17 MPV 11.9 fL (7.4-10.4) H 11/27/21 01:17 Neut % (Auto) 75.5 % 11/25/21 14:15 Lymph % (Auto) 15.5 % 11/25/21 14:15 Starke % (Auto) 6.8 % 11/25/21 14:15 Eos % (Auto) 1.5 % 11/25/21 14:15 Baso % (Auto) 0.3 % 11/25/21 14:15 Neut # (Auto) 8.55 10^3/uL (1.8-7.7) H 11/25/21 14:15 Lymph # (Auto) 1.8 10^3/uL (0.8-4.8) 11/25/21 14:15 Starke # (Auto) 0.8 10^3/uL (0.2-0.9) 11/25/21 14:15 Eos # (Auto) 0.2 10^3/uL (0.0-0.8) 11/25/21 14:15 Baso # (Auto) 0.0 10^3/uL (0.0-0.1) 11/25/21 14:15 Nucleated RBC % (auto) 0 % 11/25/21 14:15 Nucleated RBCs # 0.0 /100WBC 11/25/21 14:15 Sodium 137 mmol/L (136-145) 11/25/21 14:15 Potassium 3.8 mmol/L (3.5-5.1) 11/25/21 14:15 Chloride 104 mmol/L (98-107) 11/25/21 14:15 Carbon Dioxide 20 mmol/L (22-29) L 11/25/21 14:15 Anion Gap 16.8 (5-19) 11/25/21 14:15 BUN 8 mg/dL (6-20) 11/25/21 14:15 Creatinine 0.6 mg/dL (0.5-0.9) 11/25/21 14:15 GFR Calculation 120.8 mL/min (90-130) 11/25/21 14:15 Glucose 76 mg/dL (65-115) 11/25/21 14:15 Calculated Osmolality 281 mOsm/kg (285-295) L 11/25/21 14:15 Uric Acid 3.5 mg/dL (2.4-5.7) 11/25/21 14:15 Calcium 9.1 mg/dL (8.5-10.5) 11/25/21 14:15 Total Bilirubin 0.2 mg/dL (0.15-1.2) 11/25/21 14:15 AST 17 U/L (0-32) 11/25/21 14:15 ALT 14 U/L (0-33) 11/25/21 14:15 Alkaline Phosphatase 200 U/L (35-105) H 11/25/21 14:15 Total Protein 6.9 g/dL (6.6-8.7) 11/25/21 14:15 Albumin 3.7 g/dL (3.5-5.2) 11/25/21 14:15 Globulin 3.2 g/dL (1.3-4.6) 11/25/21 14:15 Insulin-like GF I Positive 11/25/21 13:33 Urine Color Yellow (Yellow) 11/25/21 15:00 Urine Appearance Hazy (CLEAR) A 11/25/21 15:00 Urine pH 6 (5-7) 11/25/21 15:00 Ur Specific [place] 1.015 (1.005-1.030) 11/25/21 15:00 Urine Protein Neg (Negative) 11/25/21 15:00 Urine Glucose (UA) Norm (Normal) 11/25/21 15:00 Urine Ketones 1+ (Negative) H 11/25/21 15:00 Urine Blood Trace (Negative) H 11/25/21 15:00 Urine Nitrate Negative (Negative) 11/25/21 15:00 Urine Bilirubin Neg (Negative) 11/25/21 15:00 Urine Urobilinogen 1 mg/dL (Negative) H 11/25/21 15:00 Ur Leukocyte Esterase Negative (Negative) 11/25/21 15:00 Urine RBC None /hpf (0-2) 11/25/21 15:00 Urine WBC Rare /hpf (0-5) 11/25/21 15:00 Ur Squamous Epith Cells 15-25 /hpf (0-5) H 11/25/21 15:00 Amorphous Sediment Not Reportable 11/25/21 15:00 Urine Bacteria 2+ /hpf (NONE) H 11/25/21 15:00 Urine Mucus 2+ /hpf 11/25/21 15:00 U Random Total Protein 28 mg/dL 11/25/21 15:00 Urine Creatinine 219 mg/dL (28-217) H 11/25/21 15:00 Protein/Creatinin Ratio 0.13 mg/mg CR 11/25/21 15:00 Vitals Last Vital Signs Temp 97.9 F 11/27/21 09:30 Pulse 78 11/27/21 09:30 Resp 16 11/27/21 09:30 BP 115/72 11/27/21 09:30 Pulse Ox 97 11/27/21 09:30 O2 Del Method 11/27/21 09:30 O2 Flow Rate 10 11/26/21 12:20 Discharge Plan Discharge Patient Disposition: Home Condition: Stable Prescriptions: New acetaminophen 325 mg capsule 325 mg PO Q4H PRN (Reason: fever or pain) Qty: 60 0RF docusate sodium [Colace] 100 mg capsule 100 mg PO BID Qty: 30 0RF ferrous sulfate [Iron (ferrous sulfate)] 325 mg (65 mg iron) tablet 325 mg PO BID Qty: 30 0RF ibuprofen 800 mg tablet 800 mg PO TID PRN (Reason: pain) Qty: 60 0RF Continued prenat.vits,erickson,ial-wttt-sukxe Tablet 1 tab PO DAILY acetaminophen [Tylenol Extra Strength] 500 mg tablet 1,000 mg PO Q6H PRN sertraline [Zoloft] 50 mg tablet 50 mg PO DAILY Qty: 30 0RF Rx Instructions: take 1/2 tablet daily for 7 days, then increase to 50mg. Discharge Orders: Discharge Order (Routine); Ordered 11/27/21 Ordered By: Tai May Referrals: Tai May MD [Physician] - 01/07/22 10:30 am Discharge Diet: Advance as tolerated and Usual diet Discharge Activity: Limit activity as instructed Patient Instructions: Depression (GEN), Bleeding (GEN), Preeclampsia and Eclampsia After Delivery (GEN), OB Discharge Report, OB Food/Drug Interaction Guide, OB Care at Home, Opioid Safety, OB Home Care, OB Vaginal Deliveries - [facility], Abnormal Bleeding Activity Restrictions/Additional Instructions: 1. Please call [facility] clinic on next working day to make your appointment in 6 weeks. 2. Please stay home until you come back to the clinic on first post-operative check up. 3. Please follow instructions on your medications CAREFULLY. 4. If you have abdominal incision, do not cover it unless dressing is necessary because of drainage. OK to shower, but avoid bath. Leave steri-strips until they fall off. If they are still on one week after surgery, you may remove them. 5. If you had vaginal surgery or vaginal repair, Dr. May may instruct you to take SITZ bath. 6. Yellow, blood tinged odorous vaginal discharge is usually normal after hysterectomy or vaginal surgeries. 7. No sexual intercourse, tampons, or douches until you are completely released from the post-operative care. 8. Avoid constipation by eating right and maybe using some Metamucil or Milk of Magnesia. 9. All prescription refills are given during the working hours. Please do no wait till it runs out. Call the clinic at [phone] before your medication runs out. The clinic will get in touch with your doctor to prescribe medications if necessary. 10. Please remain within 40 mile radius from our hospital because emergencies do happen now and then during the post-operative period. 11. If you have stairs at home, take one step at a time slowly and minimize the number of trips. It helps to stay in one floor for the next few days. No lifting except what you can lift by one hand until you are released from the post-operative care. 12. Driving is discouraged until you are well healed. It may be 3-4 weeks before you feel strong enough to drive. You should be able to turn and look through the rear window without pain and you should be able to push the brake pedal very hard without pain before you drive. No fast rules, but SAFETY should be your primary concern. DO NOT drive if you are on sedating medications such as narcotics. 13. Call the clinic (during working hours) to make urgent appointment or go to the Emergency room, if any of the following occurs: i. Vaginal bleeding becomes heavy, more than a period. ii. Incision becomes red and sore, or drains pus. iii. Your temperature is over 100.4 or you have chill. iv. IV site becomes red and swollen (a little ``knot?? is usually OK) v. Persistent nausea and vomiting vi. Persistent constipation or diarrhea vii. Rash or allergic reaction to medications. Discharge Attestations DIRECTOR RETIREMENT Time Spent in Discharge Care*: greater than 30 min Coding Level of Care Code Acute Junior Mechanical Engineer for Chg Jurgend Diagnoses Full-term premature rupture of membranes with onset of labor within 24 hours of rupture O42.02 Term delivered O80
--- NOTE | 2021-11-27 14:05 | ANE.PACU2 ---
Inpatient post-anesthesia follow up: Airway intact: Yes Vital signs: Temperature 97.9 F Pulse Rate 78 Respiratory Rate 16 Blood Pressure 115/72 Pulse Oximetry 97 Oxygen Delivery Me thod Room Air Oxygen Flow Rate 10 Fraction of Inspir ed Oxygen Hydration adequate: Yes Nausea and vomiting: No Pain level: 2 Mental status: Baseline Additional Comments: EMR review
[2021-11-27 14:15] VITALS: BP 110/73; PULSE 78; RESP 16; TEMP 36.6; O2SAT 97
== END 2021-11-27 14:40 | disposition home or self-care (01) | DRG 807 ==
LOC: OPOB 15:13 → OBGYN 15:13
PROVIDERS: Obstetrics & Gynecology; Admitting Provider Obstetrics & Gynecology; PCP Family Medicine; Visit Provider Obstetrics & Gynecology
DX: O42.02 Full-term premature rupture of membranes, onset of labor within 24 hours of rupture (principal); Z37.0 Single live birth; Z3A.39 39 weeks gestation of pregnancy; O77.0 Labor and delivery complicated by meconium in amniotic fluid; O99.344 Other mental disorders complicating childbirth; F41.9 Anxiety disorder, unspecified
CPT/HCPCS: 36415; 51702; 59025; 59409; 80053; 81001; 82570; 83986; 84112; 84156; 84550; 85025; 85027; J2405; J2765; J2795; J3010

== ENCOUNTER → 2022-01-07 10:47 | Outpatient (BNVA) | payer BC, MEDICAID, SELFPAY | PROVIDERS: PCP Family Medicine; Visit Provider Obstetrics & Gynecology | DX: Z30.430 Encounter for insertion of intrauterine contraceptive device (principal) | CPT/HCPCS: 81025 ==

== ENCOUNTER 2025-02-26 21:49 | Emergency (ER) | payer BC, MEDICAID, SELFPAY ==
--- OUTSIDE RECORDS SUMMARY | 2025-02-26 21:53 | XMS_ITS | Patient Health Record ---
Author Organization [facility] Address [address] [place] [address] Care Team Providers Care Security Compliance Specialist Name Role Phone Kee Nielsen Primary Care Provider [phone] Reason For Referral No Information Plan Of Treatment No Information
[2025-02-26 22:02] VITALS: BP 109/72; PULSE 95; RESP 17; TEMP 36.8; O2SAT 99; BMI 19.5
[2025-02-26] MEDS: ondansetron 2 mg/ML SDV 2 mL 4 MG IVP (22:40)
--- NOTE | 2025-02-26 22:42 | W.ED.NAVMDI ---
HPI - Nausea/Vomiting/Diarrhea General: Chief complaint: Nausea/Vomiting/Diarrhea Stated complaint: N/V, diarrhea Time Seen by Provider: 02/26/25 21:51 History of Present Illness: Patient is a 30-year-old female with no past medical history who presents to the ED with abrupt nausea vomiting, abdominal discomfort that started a few hours prior to arrival. Patient and her family had just had Thanksgiving dinner and shortly after developed the symptoms, not preceded by abdominal pain but has had a mild diffuse abdominal soreness, thinks it is from the retching she has had. Her daughter has been sick with a diarrheal illness for the last week. She denies other members of the family getting sick just after the event. She has had no recent fevers, chills, diaphoresis. Educated, she had recurrent episodes of nausea vomiting requiring her to go to the hospital and helped her with Zofran. She has no known drug or food allergies. No prior abdominal surgeries. Associated nausea: Yes Associated symtoms: Reports nausea Related Data Home Medications ?Medication ?Instructions ?Recorded ?Confirmed levonorgestrel (Mirena) 1 device intrauterine .8 YEARS 03/13/23 03/23/24 Previous Rx's ?Medication ?Instructions ?Recorded doxycycline hyclate 100 mg capsule 100 mg PO BID 10 days #20 caps 03/23/24 estradiol 0.01% (0.1 mg/gram) 1 g vaginal .COMPLEX #42.5 grams 03/23/24 vaginal cream (Estrace) triamcinolone acetonide 0.5 % 1 applic topical BID PRN vulvitis 03/23/24 topical ointment #15 grams cephalexin 500 mg tablet 500 mg PO QID #20 tabs 02/27/25 prochlorperazine maleate 10 mg 10 mg PO Q8H PRN nausea and 02/27/25 tablet (Compazine) vomiting #20 tabs Allergies Allergy/AdvReac Type Severity Reaction Status Date / Time No Known Allergies Allergy Verified 03/23/24 10:37 Review of Systems General: Reports: 10 or more systems reviewed and unremarkable except in HPI and below GI: Reports: abdominal pain, nausea and vomiting [facility] ED PFSH: Medical History (Updated 02/27/25 @ 00:29 by Antelmo Carlton DO) No pertinent past medical history neghx: htn,dm,thyroid,dvt/pe Surgical History No pertinent past surgical history Family History Father Hypertension Anesthesia complication Grandmother Family history of thyroid problem Maternal grandmother Ovarian cancer, Onset Age: 65 Maternal grandmother. BRCA 2 carrier Family/Other Breast cancer Maternal great aunt, 60's Denies family history of Colon cancer Diabetes Clotting disorder Heart disease Hyperlipidemia Bleeding disorder Uterine cancer Stroke Social History Smoking and tobacco/nicotine status: never used tobacco/nicotine Physical Exam Narrative: EXAM NARRATIVE: Patient mildly fatigued but overall well-appearing, nontoxic, afebrile, vital signs stable on arrival, no acute distress. Abdomen mildly distended, mild diffuse tenderness but nothing localized, McBurney and Epperson sign negative, bowel sounds increased, no overlying skin changes, no CVA tenderness. Breathing comfortably on room air, saturating well, no adventitious lung sounds, normal sinus rhythm, slightly delayed cap refill, 2+ pulses throughout, GCS 15. Course Vital Signs: Vital signs: Vital Signs Temperature 98.3 F 02/26/25 22:02 Pulse Rate 104 H 02/26/25 23:40 Respiratory Rate 17 02/26/25 22:02 Blood Pressure 105/69 02/26/25 23:40 Pulse Oximetry 96 02/26/25 23:40 Oxygen Delivery Me thod Room Air 02/26/25 23:40 MDM - Nausea/Vomiting/Diarrhea Medical Decision Making -ddx: Foodborne illness, gastroenteritis, dehydration, electrolyte abnormality, pancreatitis, cholecystitis, UTI - Patient with abrupt onset of GI symptoms seemingly shortly after food intake, no other family members have similar symptoms, daughters had recent diarrhea over the past week. Reassuring abdominal exam with mild tenderness but nothing pinpoint or localizing, not severe, will start with fluids, Pepcid and Zofran, abdominal labs and reassess, will hold off on CT scan at this time unless symptoms persist or worsen, severe laboratory abnormalities. -patient with hx of nausea issues intermittently, had felt better with above meds but still nauseous, given Compazine with much improvement. her labs revealed a moderate luekocytosis, which was attriubatable to her acute stressor of multiple episodes of NV, dehydration. she had no significant electrolyte abnl, [place]. her abd and CVA exam remained benign. her UA was fairly convincing for a UTI, her symptoms seemed much more attirbutable to an acute foodborne illness that clinically was much improved, but in setting of that possibly being a confounding factor, will treat it as a cystitis, tolerated PO without issue and remained HD stable and afebrile, dc'd in stable condition with abx and antiemetics and to fu with PCP in a few days with strict return precautions given, at bedside. Lab Data 02/26/25 22:02/26/25 Laboratory Results WBC 16.85 10^3/uL (3.29-11.43) H 02/26/25: RBC 4.60 10^6/uL (3.85-5.65) 02/26/25: Hgb 14.60 g/dL (11.27-16.99) 02/26/25: Hct 43.1 % (36-47) 02/26/25: MCV 93.7 fl (85-98) 02/26/25: MCH 31.7 pg (27-33) 02/26/25: MCHC 33.9 g/dL (30-55) 02/26/25: RDW 11.9 % (12.1-15.1) L 02/26/25: Plt Count 258 10^3/cmm (157-399) 02/26/25: MPV 10.7 fL (7.4-10.4) H 02/26/25: Neut % (Auto) 89.1 % 02/26/25: Lymph % (Auto) 3.8 % 02/26/25: Glynn % (Auto) 5.9 % 02/26/25: Eos % (Auto) 0.6 % 02/26/25: Baso % (Auto) 0.3 % 02/26/25: Neut # (Auto) 15.02 10^3/uL (1.8-7.7) H 02/26/25: Lymph # (Auto) 0.6 10^3/uL (0.8-4.8) L 02/26/25: Glynn # (Auto) 1.0 10^3/uL (0.2-0.9) H 02/26/25: Eos # (Auto) 0.1 10^3/uL (0.0-0.8) 02/26/25: Baso # (Auto) 0.1 10^3/uL (0.0-0.1) 02/26/25: Nucleated RBC % (auto) 0 % 02/26/25 Nucleated RBCs # 0.0 /100WBC 02/26/25: Sodium 141 mmol/L (136-145) 02/26/25 Potassium 4.0 mmol/L (3.5-5.1) 02/26/25: Chloride 103 mmol/L (98-107) 02/26/25: Carbon Dioxide 24 mmol/L (22-29) 02/26/25 Anion Gap 18.0 (5-19) 02/26/25: BUN 15 mg/dL (6-20) 02/26/25: Creatinine 1.0 mg/dL (0.5-0.9) H 02/26/25: GFR Calculation 65.1 mL/min (90-130) L 02/26/25: Glucose 153 mg/dL (65-115) H 02/26/25: Calculated Osmolality 296 mOsm/kg (285-295) H 02/26/25: Calcium 9.0 mg/dL (8.5-10.5) 02/26/25: Total Bilirubin 0.3 mg/dL (0.15-1.2) 02/26/25: AST 22 U/L (0-32) 02/26/25: ALT 25 U/L (0-33) 02/26/25: Alkaline Phosphatase 60 U/L (35-105) 02/26/25: C-Reactive Protein 3.0 mg/L (0.0-4.9) 02/26/25: Total Protein 7.7 g/dL (6.6-8.7) 02/26/25: Albumin 4.9 g/dL (3.5-5.2) 02/26/25 22: Globulin 2.8 g/dL (1.3-4.6) 02/26/25 22: Lipase 44 U/L (13-60) 02/26/25 22: HCG, Qual Negative (Negative) 02/26/25 22: Urine Color Dark yellow (Yellow) A 02/26/25 23:24 Urine Appearance Cloudy (CLEAR) A 02/26/25 23:24 Urine pH 5.5 (5-7) 02/26/25 23:24 Ur Specific [place] 1.027 (1.005-1.030) 02/26/25 23:24 Urine Protein Negative (Negative) 02/26/25 23: Urine Glucose (UA) Negative (Normal) 02/26/25 23:24 Urine Ketones 2+ (Negative) H 02/26/25 23:24 Urine Blood Negative (Negative) 02/26/25 23:24 Urine Nitrate Negative (Negative) 02/26/25 23:24 Urine Bilirubin Negative (Negative) 02/26/25 23:24 Urine Urobilinogen 0.2 mg/dL (Negative) 02/26/25 23:24 Ur Leukocyte Esterase 1+ (Negative) A 02/26/25 23:24 Urine RBC 0-2 /hpf (0-2) 02/26/25 23:24 Urine WBC 11-20 /hpf (0-5) H 02/26/25 23:24 Ur Squamous Epith Cells 11-20 /hpf (0-5) H 02/26/25 23:24 Amorphous Sediment Not Reportable 02/26/25 23:24 Urine Bacteria 2+ /hpf (NONE) H 02/26/25 23:24 Hyaline Casts 0.40 /lpf 02/26/25 23:24 No radiology studies performed this visit Discharge Plan Discharge Patient Disposition: Home Clinical Impression: Food poisoning, UTI (urinary tract infection) Condition: Stable Prescriptions: New cephalexin 500 mg tablet 500 mg PO QID Qty: 20 0RF prochlorperazine maleate [Compazine] 10 mg tablet 10 mg PO Q8H PRN (Reason: nausea and vomiting) Qty: 20 0RF No Action triamcinolone acetonide 0.5 % ointment 1 applic topical BID PRN (Reason: vulvitis) Qty: 15 1RF estradiol [Estrace] 0.01 % (0.1 mg/gram) cream 1 g vaginal .COMPLEX Qty: 42.5 3RF Rx Instructions: insert 1 gram at hs for 14 nights then 2-3 times weekly-- space out doses doxycycline hyclate 100 mg capsule 100 mg PO BID 10 Days Qty: 20 0RF Mirena 21 mcg/24 hours (8 yrs) 52 mg intrauterine device 1 device intrauterine .8 YEARS Discharge Orders: Discharge ED (Routine); Ordered 02/27/25 Ordered By: Antelmo Carlton Referrals: Raheem Lira DO [Primary Care Provider, Family Practice] Patient Instructions: Opioid Safety, Pain Management, Patient Portal & Sylvie Instructions Activity Restrictions/Additional Instructions: You were seen for your nausea and vomiting, you were evaluated with labs and a urine test which were ultimately reassuring, you were thought to have a type of food poisoning or viral stomach bug causing your symptoms, you improved with fluids and nausea medication and were deemed stable to be discharged home. Your urine test was also suggestive of a UTI, for this, you are given a first dose of an antibiotic, for the remainder of the course, take the Keflex 500 mg, every 6 hours for a total of 5 days to treat the infection. For the nausea, use the Compazine 10 mg every 8 hours as needed to ensure you stay hydrated. Return to the ED with severe worsening abdominal pain, fevers that do not improve with Tylenol, continuous vomiting, inability to eat or drink, any other emergent concerns. Print Language: Icelandic Coding Level of Care Code ED Natural Sciences Department Chair for Otis Bronson
[2025-02-26 22:47] LABS: Hematocrit 43.1 % (36-47); Hemoglobin 14.60 g/dL (11.27-16.99); Mean Corpuscular HGB Conc 33.9 g/dL (30-55); Mean Corpuscular Hemoglobin 31.7 pg (27-33); Mean Corpuscular Volume 93.7 fl (85-98); Nucleated Red Blood Cells % 0 %; Platelet Count 258 10^3/cmm (157-399); Red Blood Count 4.60 10^6/uL (3.85-5.65); White Blood Count 16.85 10^3/uL (3.29-11.43)
[2025-02-26 22:53] LABS: HCG, Serum Qual Negative (Negative)
[2025-02-26 23:02] LABS: Alanine Aminotransferase 25 U/L (0-33); Albumin Level 4.9 g/dL (3.5-5.2); Alkaline Phosphatase 60 U/L (35-105); Anion Gap 18.0 (5-19); Aspartate Amino Transferase 22 U/L (0-32); Blood Urea Nitrogen 15 mg/dL (6-20); Calcium 9.0 mg/dL (8.5-10.5); Carbon Dioxide 24 mmol/L (22-29); Chloride 103 mmol/L (98-107); Globulin 2.8 g/dL (1.3-4.6); Glucose 153 mg/dL (65-115); Lipase 44 U/L (13-60); Osmolality Calculated 296 mOsm/kg (285-295); Potassium 4.0 mmol/L (3.5-5.1); Sodium 141 mmol/L (136-145); Total Protein 7.7 g/dL (6.6-8.7)
[2025-02-26 23:40] VITALS: BP 105/69; PULSE 104; O2SAT 96
[2025-02-26 23:40] LABS: Glucose Urine UA Negative (Normal); Nitrate Urine Negative (Negative); Specific Gravity, Urine 1.027 (1.005-1.030)
[2025-02-26 23:45] LABS: Add Urine Microscopic? YES
[2025-02-26] MEDS: metoclopramide 5 mg/mL SDV 2 mL 10 MG IVP (23:54)
== END 2025-02-27 00:40 | disposition home or self-care (01) ==
PROVIDERS: Emergency Provider Student in an Organized Health Care Education/Training Program; PCP Family Medicine
DX: A05.9 Bacterial foodborne intoxication, unspecified (principal); N39.0 Urinary tract infection, site not specified
CPT/HCPCS: 36415; 80053; 81001; 83690; 84703; 85025; 86140; 96374; 96375; 99284; J0780; J2405; J2765; J3490; J7030

== ENCOUNTER → 2025-03-29 13:33 | Outpatient (BNVA) | payer BC, MEDICAID, SELFPAY | PROVIDERS: PCP Family Medicine; Visit Provider Nurse Practitioner Women's Health | DX: Z12.4 Encounter for screening for malignant neoplasm of cervix (principal) | CPT/HCPCS: 87624 ==